=== PATIENT | male | born 1945 | race Caucasian/White ===

== ENCOUNTER 2019-08-28 00:04 | Emergency (ER) | payer MEDICARE ==
[2019-08-28 00:45] LABS: BASO # 0.1 x10^3/uL (0.0-0.2); BASO % 1 % (0-3); EOS # 0.4 x10^3/uL (0.0-0.7); EOS % 5 % (0-3); HEMATOCRIT 45.3 % (39.0-53.0); HEMOGLOBIN 15.3 g/dL (13.0-17.5); LYMPH # 2.6 x10^3/uL (1.0-4.8); LYMPH % 30 % (24-48); MEAN CORPUSCULAR HEMOGLOBIN 31 pg (25-35); MEAN CORPUSCULAR HGB CONC 34 g/dL (31-37); MEAN CORPUSCULAR VOLUME 92 fL (79-100); MONO % 12 % (0-9); NEUT # 4.4 x10^3uL (1.8-7.7); NEUT % 52 % (31-73); PLATELET COUNT 218 x10^3/uL (140-400); RED BLOOD COUNT 4.91 x10^6/uL (4.30-5.70); RED CELL DISTRIBUTION WIDTH 13.1 % (11.5-14.5); WHITE BLOOD COUNT 8.6 x10^3/uL (4.0-11.0)
[2019-08-28 00:56] LABS: CALCIUM 8.8 mg/dL (8.5-10.1); CREATININE 0.9 mg/dL (0.7-1.3); GFR 82.5; POTASSIUM 3.5 mmol/L (3.5-5.1)
[2019-08-28 01:12] VITALS: BP 126/80
--- NOTE | 2019-08-28 01:16 | PHYS DOC ---
Past History Past Medical History: Hypertension, [place] Past Surgical History: Tonsillectomy, Other Additional Past Surgical Histo: cardiac stents Alcohol Use: None Drug Use: None Adult General Chief Complaint Chief Complaint: HYPERTENSION HPI HPI Patient is a 74-year-old male presenting with chief complaint of blood pressure reading elevated. Apparently he did his blood pressure at home and was 190 systolic no chest pain no headache no shortness of breath he just felt a little lightheaded but really did not feel that bad he just wanted to check his pressure and it came back elevated and there was another reading of 170 so he came to the emergency room for evaluation Review of Systems Review of Systems Constitutional: Denies fever or chills [] Eyes: Denies change in visual acuity, redness, or eye pain [] HENT: Denies nasal congestion or sore throat [] Musculoskeletal: Denies back pain or joint pain [] Integument: Denies rash or skin lesions [] Neurologic: Denies headache, focal weakness or sensory changes [] Endocrine: Denies polyuria or polydipsia [] All other systems were reviewed and found to be within normal limits, except as documented in this note. Allergies Allergies Allergies Coded Allergies Type Severity Reaction Last Updated Verified Sulfa (Sulfonamide Antibiotics) Allergy Severe Swelling 08/28/19 Yes Physical Exam Physical Exam Constitutional: Well developed, well nourished, no acute distress, non-toxic appearance. [] HENT: Normocephalic, atraumatic, bilateral external ears normal, oropharynx moist, no oral exudates, nose normal. [] Eyes: PERRLA, EOMI, conjunctiva normal, no discharge. [] Neck: Normal range of motion, no tenderness, supple, no stridor. [] Cardiovascular:Heart rate regular rhythm, no murmur [] Lungs & Thorax: Bilateral breath sounds clear to auscultation [] Abdomen: Bowel sounds normal, soft, no tenderness, no masses, no pulsatile masses. [] Skin: Warm, dry, no erythema, no rash. [] Back: No tenderness, no CVA tenderness. [] Extremities: No tenderness, no cyanosis, no clubbing, ROM intact, no edema. [] Neurologic: Alert and oriented X 3, normal motor function, normal sensory function, no focal deficits noted. [] Psychologic: Affect normal, judgement normal, mood normal. [] Current Patient Data Vital Signs Vital Signs Date Time Temp Pulse Resp B/P (MAP) Pulse Ox O2 Delivery O2 Flow Rate FiO2 08/28/19 00:08 98.3 84 16 98 Room Air Lab Results Laboratory Tests Test 08/28/19 00:20 White Blood Count 8.6 x10^3/uL (4.0-11.0) Red Blood Count 4.91 x10^6/uL (4.30-5.70) Hemoglobin 15.3 g/dL (13.0-17.5) Hematocrit 45.3 % (39.0-53.0) Mean Corpuscular Volume 92 fL (79-100) Mean Corpuscular Hemoglobin 31 pg (25-35) Mean Corpuscular Hemoglobin Concent 34 g/dL (31-37) Red Cell Distribution Width 13.1 % (11.5-14.5) Platelet Count 218 x10^3/uL (140-400) Neutrophils (%) (Auto) 52 % (31-73) Lymphocytes (%) (Auto) 30 % (24-48) Monocytes (%) (Auto) 12 % (0-9) H Eosinophils (%) (Auto) 5 % (0-3) H Basophils (%) (Auto) 1 % (0-3) Neutrophils # (Auto) 4.4 x10^3uL (1.8-7.7) Lymphocytes # (Auto) 2.6 x10^3/uL (1.0-4.8) Monocytes # (Auto) 1.0 x10^3/uL (0.0-1.1) Eosinophils # (Auto) 0.4 x10^3/uL (0.0-0.7) Basophils # (Auto) 0.1 x10^3/uL (0.0-0.2) Sodium Level 139 mmol/L (136-145) Potassium Level 3.5 mmol/L (3.5-5.1) Chloride Level 101 mmol/L (98-107) Carbon Dioxide Level 27 mmol/L (21-32) Anion Gap 11 (6-14) Blood Urea Nitrogen 21 mg/dL (8-26) Creatinine 0.9 mg/dL (0.7-1.3) Estimated GFR (Cockcroft-Gault) 82.5 Glucose Level 108 mg/dL (70-99) H Calcium Level 8.8 mg/dL (8.5-10.1) Troponin I Quantitative < 0.017 ng/mL (0-0.055) EKG EKG []EKG shows a sinus rhythm QRS is 1:30 there is a nonspecific intraventricular block in light of that no definite ischemia or STEMI was identified Radiology/Procedures Radiology/Procedures [] Course & Med Decision Making Course & Med Decision Making Pertinent Labs and Imaging studies reviewed. (See chart for details) []Blood pressures in the emergency room are in the 139-143 range systolic he is asymptomatic he is very well-appearing overall this is a 74-year-old male with prior history of [place] with a stent presenting after an episode of elevated blood pressure at home. Currently symptoms resolved patient feels well blood pressure is essentially normal sort of high normal Regarding close follow-up with primary care doctor within 1 week come back right away for any shortness of breath chest pain or recurrent symptoms Dragon Disclaimer Dragon Disclaimer This electronic medical record was generated, in whole or in part, using a voice recognition dictation system. Departure Departure: Impression: Primary Impression: Elevated blood pressure reading Disposition: 01 HOME, SELF-CARE Condition: STABLE Patient Instructions: Hypertension Additional Instructions: your blood pressure was borderline in the emergency room, please see primary doctor for a re-evaluation in one week. ROBERT KERR MD Aug 28, 2019 01:16
--- NOTE | 2019-08-28 04:01 | EKG ---
[address] [address] Test Date: 2019-08-28 Test Time: 00:17:49 Pat Name: FAZAL SALAZAR Department: Room: Gender: M [employer]: : 1945 Requested By: ROBERT KERR Order Number: [id number] Reading MD: Measurements Intervals Stevens Rate: 83 P: 46 ME: 158 QRS: -52 QRSD: 130 T: 39 QT: 390 QTc: 459 Interpretive Statements SINUS RHYTHM ABNORMAL LEFT AXIS DEVIATION NON SPECIFIC INTRAVENTRICULAR BLOCK ABNORMAL ECG RI6.01 No previous ECG available for comparison
== END 2019-08-28 01:28 | disposition home or self-care (01) ==
LOC: ER 00:04
DX: I10 Essential (primary) hypertension (principal); I25.2 Old myocardial infarction; Z88.2 Allergy status to sulfonamides
CPT/HCPCS: 36415; 80048; 84484; 85025; 93005; 99285

== ENCOUNTER 2020-05-10 10:40 | Emergency (ER) | payer MEDICARE ==
[~2020-05-10] VITALS: Ht 177.8 cm; Wt 82.4 kg
--- NOTE | 2020-05-10 10:51 | PHYS DOC ---
Past History Past Medical History: Hypertension, [place] Past Surgical History: Tonsillectomy, Other Additional Past Surgical Histo: cardiac stents Alcohol Use: None Drug Use: None General Adult EDM: Chief Complaint: NEURO SYMPTOMS/DEFICITS HPI: HPI: 74-year-old male presents via EMS with difficulty with speech. The patient's last known well was 830 this morning it is now 1049. He was acting fine while he let the dogs out in the morning as well as while he ate breakfast. He got in the shower and when he got out he was unable to speak clearly. Patient did not appear to have any other symptoms according to his spouse and EMS. The patient is unable to verbally answer questions for me. He appears to hear what I am saying, but is unable to formulate an answer. He does say clear words, they just do not make sense in context. Review of Systems: Review of Systems: Constitutional: Denies fever or chills Eyes: Denies change in visual acuity HENT: Denies nasal congestion or sore throat Respiratory: Denies cough or shortness of breath Cardiovascular: Denies chest pain or edema GI: Denies abdominal pain, nausea, vomiting, bloody stools or diarrhea : Denies dysuria Musculoskeletal: Denies back pain or joint pain Integument: Denies rash Neurologic: Denies headache, focal weakness or sensory changes Endocrine: Denies polyuria or polydipsia Lymphatic: Denies swollen glands Psychiatric: Denies depression or anxiety Heart Score: Risk Factors: Risk Factors: DM, Current or recent (<one month) smoker, HTN, HLP, family history of CAD, obesity. Risk Scores: Score 0 - 3: 2.5% MACE over next 6 weeks - Discharge Home Score 4 - 6: 20.3% MACE over next 6 weeks - Admit for Clinical Observation Score 7 - 10: 72.7% MACE over next 6 weeks - Early Invasive Strategies Allergies: Allergies: Allergies Coded Allergies Type Severity Reaction Last Updated Verified Sulfa (Sulfonamide Antibiotics) Allergy Severe Swelling 08/28/19 Yes Physical Exam: PE: Constitutional: Well developed, well nourished, no acute distress, non-toxic appearance. [] HENT: Normocephalic, atraumatic, bilateral external ears normal, oropharynx moist, no oral exudates, nose normal. [] Eyes: PERRLA, EOMI, conjunctiva normal, no discharge. [] Neck: Normal range of motion, no tenderness, supple, no stridor. [] Cardiovascular:Heart rate regular rhythm, no murmur [] Lungs & Thorax: Bilateral breath sounds clear to auscultation [] Abdomen: Bowel sounds normal, soft, no tenderness, no masses, no pulsatile masses. [] Skin: Warm, dry, no erythema, no rash. [] Back: No tenderness, no CVA tenderness. [] Extremities: No tenderness, no cyanosis, no clubbing, ROM intact, no edema. [] Neurologic: Alert and oriented X 3, normal motor function, normal sensory function, no focal deficits noted. [] Psychologic: Affect normal, judgement normal, mood normal. [] EKG: EKG: Sinus rhythm, rate 78, left axis, PVC, no ST elevations or depressions. [] Radiology/Procedures: Radiology/Procedures: [] Impressions: CT scan of the head without contrast 05/10/2020 Clinical History: Slurred speech. Confusion. Weakness. Code stroke. Technique: Unenhanced, contiguous, 5 mm axial sections were obtained through the head. One or more of the following individualized dose reduction techniques were utilized for this study: 1. Automated exposure control. 2. Adjustment of the mA and/or kV according to patient size. 3. Use of iterative reconstruction technique. Findings: There is generalized parenchymal atrophy. Areas of decreased attenuation are seen within the periventricular and subcortical white matter of both cerebral hemispheres consistent with areas of small vessel ischemic disease. No acute parenchymal abnormality is seen. No extra-axial fluid collection is noted. No skull fracture is seen. Impression: No acute intracranial abnormality is seen. This result was called to Dr. Payne at 1048 hours. FOR INTERNAL CODING PURPOSES RESULT CODE: (C) Electronically signed by: Singh Carr MD (05/10/2020 10:51 AM) [id number] DICTATED AND SIGNED BY: SINGH CARR MD DATE: 05/10/20 1051 CC: XIN PAYNE DO; GETACHEW BRISENO MD ~ Single AP view of the chest. Comparison: None. Indication: Altered mental status Findings: The heart is enlarged. There is no pneumothorax or effusion. Pulmonary vascular congestion Impression: 1. Cardiomegaly of mild pulmonary vascular congestion. Electronically signed by: Jonathan Fisher MD (05/10/2020 12:08 PM) [id number] DICTATED AND SIGNED BY: JONATHAN FISHER MD DATE: 05/10/20 1208 CC: XIN PAYNE DO; GETACHEW BRISENO MD ~ CTA of the head and neck with contrast 05/10/2020 Clinical history: Confusion. Weakness. Slurred speech. Technique: After the intravenous administration of 100 cc of Omnipaque 350, contiguous, 0.625 mm axial sections were obtained through the upper chest, neck and head. Multiplanar 3-D MIP and volume rendered 3-D reconstructed images were obtained. One or more of the following individualized dose reduction techniques were utilized for this study: 1. Automated exposure control. 2. Adjustment of the mA and/or kV according to patient size. 3. Use of iterative reconstruction technique. Findings: Comparison is made to patient's CT scan of the head performed earlier today. Scattered atherosclerotic plaque formation seen involving the thoracic aortic arch and its branches. The origins of the brachiocephalic, left common carotid and left subclavian arteries from the thoracic aortic arch are patent. The origin of the right common carotid artery and both vertebral arteries are patent. The common carotid arteries are mildly tortuous bilaterally but patent. Very mild atheromatous plaque formation seen involving both carotid bifurcations. No hemodynamically significant stenosis is seen. The internal carotid arteries within the neck are tortuous but patent. The left vertebral artery is dominant. Both vertebral arteries demonstrate normal antegrade flow. No area stenosis or occlusion is seen. Intracranially, scattered atherosclerotic plaque formation is seen involving the cavernous portions of both internal carotid arteries. No hemodynamically significant stenosis or area of occlusion is seen. The basilar artery is patent. The left middle cerebral artery is occluded at its distal left M1 segment 1.2 cm from its origin. Opacification of the left MCA branches distal to the trifurcation with contrast is noted. The right middle cerebral artery and its branches, anterior cerebral arteries and their branches and posterior cerebral arteries and their branches are within normal limits. No intracranial aneurysm is noted. The major dural venous sinuses are patent. No area of abnormal contrast enhancement is seen. No acute soft tissue abnormality is seen involving the neck. Degenerative changes are seen involving the uncovertebral and facet joints throughout the cervical disc spaces. Impression: 1. Very mild atheromatous plaque formation is seen involving both carotid bifurcations. No hemodynamically significant stenosis is seen. 2. Occlusion of the distal M1 segment of the left middle cerebral artery. This finding was discussed with Dr. Payne. Stenosis calculation for CTA are based on measurement of the distal internal carotid artery diameter in accordance with the NASCET methodology. FOR INTERNAL CODING PURPOSES RESULT CODE: (C) Electronically signed by: Singh Carr MD (05/10/2020 1:58 PM) [id number] DICTATED AND SIGNED BY: SINGH CARR MD DATE: 05/10/20 1358 CC: XIN PAYNE DO; GETACHEW BRISENO MD ~ Course & Med Decision Making: Course & Med Decision Making Pertinent Labs and Imaging studies reviewed. (See chart for details) Patient's labs are unremarkable. After the patient arrived, his NIH stroke scale was a 6. CT without contrast was negative for hemorrhage. He was coming up on the 3-hour nico. I spoke with the on-call neurologist at and she did recommend TPA. I spoke with the patient about TPA. He appeared to understand. When asked yes/no questions he was able to answer. I asked him if he wanted me to discuss with his family and I showed him a phone number for his and he said yes. I spoke with both the and the daughter about TPA and potential side effects. They confirm for me that the patient has not recently had surgery. He has never had a hemorrhagic stroke. He does not take any medications daily. Patient has no absolute contraindications and appears to be a good candidate. We gave him TPA. After TPA administration, the patient has not had significant improvement. His chest x-ray shows cardiomegaly and mild pulmonary vascular congestion. CTA of the head and neck is pending. CTA of the head and neck shows occlusion of distal M1 segment of the left middle cerebral artery. I spoke a second time with and Dr. Santacruz has accepted the patient for transfer as a code stroke. He will go by ambulance. 57 minutes of critical care time was spent on this patient exclusive of other billable procedures. [] Dragon Disclaimer: Dragon Disclaimer: This electronic medical record was generated, in whole or in part, using a voice recognition dictation system. NIH Stroke Scale: NIH Stroke Scale Response (Comments) Value Level of Consciousness: 0 Alert/Responsive 0 LOC Questions: 2 Answers neither correct 2 LOC Commands: 1 Performs one task 1 Best Gaze: 0 Normal 0 Visual: 0 No visual loss 0 Facial Palsy: 1 Minor paralysis 1 Motor - Left Arm 0 No drift 0 Motor - Right Arm 0 No drift 0 Motor - Left Leg 0 No drift 0 Motor: Right Leg 0 No drift 0 Limb Ataxia: 0 Absent 0 Sensory: 0 No loss 0 Best Language: 2 Severe aphasia 2 Dysathria: 0 Normal 0 Extinction and Inattention: 0 Normal 0 Total 6 Departure Departure: Impression: Primary Impression: Stroke due to occlusion of middle cerebral artery Qualified Codes: I63.512 - Cerebral infarction due to unspecified occlusion or stenosis of left middle cerebral artery Disposition: XFER SHT-TRM HOSP Condition: STABLE Referrals: GETACHEW BRISENO MD (PCP) Justification of Admission: Justification of Admission: Justification of Admission Dx: Yes Stroke - Ischemic: Stroke-Ischemic XIN PAYNE DO May 10, 2020 10:51
--- NOTE | 2020-05-10 10:54 | RAD ---
CT scan of the head without contrast 05/10/2020 Clinical History: Slurred speech. Confusion. Weakness. Code stroke. Technique: Unenhanced, contiguous, 5 mm axial sections were obtained through the head. One or more of the following individualized dose reduction techniques were utilized for this study: 1. Automated exposure control. 2. Adjustment of the mA and/or kV according to patient size. 3. Use of iterative reconstruction technique. Findings: There is generalized parenchymal atrophy. Areas of decreased attenuation are seen within the periventricular and subcortical white matter of both cerebral hemispheres consistent with areas of small vessel ischemic disease. No acute parenchymal abnormality is seen. No extra-axial fluid collection is noted. No skull fracture is seen. Impression: No acute intracranial abnormality is seen. This result was called to Dr. Browne at 1048 hours. FOR INTERNAL CODING PURPOSES RESULT CODE: (C) Electronically signed by: Singh Carr MD (05/10/2020 10:51 AM) [id number]
[2020-05-10] MEDS ORDERED: ALTEPLASE 100 MG VIAL IV ONE (11:00)
[2020-05-10] MEDS ORDERED: ALTEPLASE 100 MG IV ONE ×2 (11:09→11:45)
[2020-05-10 11:14] LABS: HEMATOCRIT 43.7 % (39.0-53.0); HEMOGLOBIN 14.9 g/dL (13.0-17.5); RED BLOOD COUNT 4.76 x10^6/uL (4.30-5.70); RED CELL DISTRIBUTION WIDTH 13.4 % (11.5-14.5); WHITE BLOOD COUNT 8.4 x10^3/uL (4.0-11.0)
--- NOTE | 2020-05-10 11:20 | EKG ---
[address] [address] Test Date: 2020-05-10 Test Time: 10:54:18 Pat Name: FAZAL SALAZAR Department: Room: Gender: M [employer] Act[employer]: : 1945 Requested By: XIN PAYNE Order Number: [id number] Reading MD: Bandar Cisse MD Measurements Intervals Mccune Rate: 78 P: 43 WV: 166 QRS: -47 QRSD: 122 T: -2 QT: 388 QTc: 446 Interpretive Statements SINUS RHYTHM VENTRICULAR PREMATURE COMPLEX(ES) ABNORMAL LEFT AXIS DEVIATION INCOMPLETE LEFT BUNDLE BRANCH BLOCK QRS(T) CONTOUR ABNORMALITY CONSIDER ANTEROSEPTAL MYOCARDIAL DAMAGE ABNORMAL ECG Electronically Signed On 05-10-2020 12:52:23 CDT by Bandar Cisse MD
[2020-05-10 11:24] LABS: CALCIUM 8.9 mg/dL (8.5-10.1); POTASSIUM 3.7 mmol/L (3.5-5.1)
[2020-05-10 11:29] LABS: ALBUMIN 3.6 g/dL (3.4-5.0); TOTAL BILIRUBIN 0.3 mg/dL (0.2-1.0); TOTAL PROTEIN 7.1 g/dL (6.4-8.2)
[2020-05-10] MEDS ORDERED: ALTEPLASE 2 MG VIAL INT CAT ONE (11:30)
[2020-05-10] MEDS ORDERED: ALTEPLASE IV SCH (11:45)
[2020-05-10] MEDS ORDERED: IOHEXOL 350 MG/ML 100 ML VIAL. IV ONE (11:45)
[2020-05-10] MEDS ORDERED: ALTEPLASE IV ONE (11:45)
[2020-05-10] MEDS ORDERED: ALTEPLASE 7 MG IV ONE (11:45)
[2020-05-10] MEDS ORDERED: IV NORMAL SALINE 50ML 50 ML IV ONE (11:45)
[2020-05-10] MEDS ORDERED: IOHEXOL 350 MG/ML 100 ML VIAL. ONE (11:52)
[2020-05-10] MEDS ORDERED: CONTRAST GIVEN. MC PRN (12:00)
--- NOTE | 2020-05-10 12:11 | RAD ---
Single AP view of the chest. Comparison: None. Indication: Altered mental status Findings: The heart is enlarged. There is no pneumothorax or effusion. Pulmonary vascular congestion Impression: 1. Cardiomegaly of mild pulmonary vascular congestion. Electronically signed by: Jonathan Fisher MD (05/10/2020 12:08 PM) [id number]
[2020-05-10 12:47] VITALS: BP 139/63
--- NOTE | 2020-05-10 14:01 | RAD ---
CTA of the head and neck with contrast 05/10/2020 Clinical history: Confusion. Weakness. Slurred speech. Technique: After the intravenous administration of 100 cc of Omnipaque 350, contiguous, 0.625 mm axial sections were obtained through the upper chest, neck and head. Multiplanar 3-D MIP and volume rendered 3-D reconstructed images were obtained. One or more of the following individualized dose reduction techniques were utilized for this study: 1. Automated exposure control. 2. Adjustment of the mA and/or kV according to patient size. 3. Use of iterative reconstruction technique. Findings: Comparison is made to patient's CT scan of the head performed earlier today. Scattered atherosclerotic plaque formation seen involving the thoracic aortic arch and its branches. The origins of the brachiocephalic, left common carotid and left subclavian arteries from the thoracic aortic arch are patent. The origin of the right common carotid artery and both vertebral arteries are patent. The common carotid arteries are mildly tortuous bilaterally but patent. Very mild atheromatous plaque formation seen involving both carotid bifurcations. No hemodynamically significant stenosis is seen. The internal carotid arteries within the neck are tortuous but patent. The left vertebral artery is dominant. Both vertebral arteries demonstrate normal antegrade flow. No area stenosis or occlusion is seen. Intracranially, scattered atherosclerotic plaque formation is seen involving the cavernous portions of both internal carotid arteries. No hemodynamically significant stenosis or area of occlusion is seen. The basilar artery is patent. The left middle cerebral artery is occluded at its distal left M1 segment 1.2 cm from its origin. Opacification of the left MCA branches distal to the trifurcation with contrast is noted. The right middle cerebral artery and its branches, anterior cerebral arteries and their branches and posterior cerebral arteries and their branches are within normal limits. No intracranial aneurysm is noted. The major dural venous sinuses are patent. No area of abnormal contrast enhancement is seen. No acute soft tissue abnormality is seen involving the neck. Degenerative changes are seen involving the uncovertebral and facet joints throughout the cervical disc spaces. Impression: 1. Very mild atheromatous plaque formation is seen involving both carotid bifurcations. No hemodynamically significant stenosis is seen. 2. Occlusion of the distal M1 segment of the left middle cerebral artery. This finding was discussed with Dr. Browne. Stenosis calculation for CTA are based on measurement of the distal internal carotid artery diameter in accordance with the NASCET methodology. FOR INTERNAL CODING PURPOSES RESULT CODE: (C) Electronically signed by: Singh Carr MD (05/10/2020 1:58 PM) [id number]
[2020-05-10 14:09] LABS: BACTERIA,URINE 0 /HPF (0-FEW); BILIRUBIN,URINE NEG (NEG); CLARITY,URINE CLEAR; COLOR,URINE YELLOW; GLUCOSE,URINE NEG (NEG); NITRITE,URINE NEG (NEG); RBC,URINE 0 /HPF (0-2); UROBILINOGEN,URINE 0.2 mg/dL (0.2 mg/dL); WBC,URINE 0 /HPF (0-4)
== END 2020-05-10 14:34 | disposition short-term general hospital (02) ==
LOC: ER 10:40
DX: I63.512 Cerebral infarction due to unspecified occlusion or stenosis of left middle cerebral artery (principal); R47.01 Aphasia; I10 Essential (primary) hypertension; I25.2 Old myocardial infarction; Z88.2 Allergy status to sulfonamides
CPT/HCPCS: 36415; 37195; 70450; 70496; 70498; 71045; 80053; 81001; 85027; 85610; 85730; 93005; 99291; J2997; Q9967

== ENCOUNTER 2021-03-26 03:47 | Emergency (ER) | payer MEDICARE ==
[~2021-03-26] VITALS: Ht 177.8 cm; Wt 82.4 kg
--- NOTE | 2021-03-26 03:52 | PHYS DOC ---
Past History Past Medical History: CAD, CVA, Hypertension, MA Past Surgical History: Other Additional Past Surgical Histo: UNKNOWN SURGICAL HX Alcohol Use: None Drug Use: None General Adult HPI: HPI: ".. I woke up short of breath... and my back.. and abdomen hurts.. " Patient is a 75 year old male who presents with above hx and complaints dyspnea and left flank and abdomen pain. Patient is hypoxic on room air on presentation. No history of previous kidney stones. No history of severe ill contacts. Has had recent Covid testing last week which were negative. Patient did not get COVID vaccination. Patient does have significant medical history of hypertension, MA, CVA, cardiac stents, and COPD/bronchitis. Patient normally follows with Dr. Anais Briseno for care. Patient not oxygen dependent previously. Review of Systems: Review of Systems: Constitutional: History of fever or chills Eyes: Denies change in visual acuity HENT: Denies nasal congestion or sore throat Respiratory: Denies cough or shortness of breath Cardiovascular: Complains of chest pain. GI: Complains of left flank abdominal pain, nausea,. Denies vomiting, bloody stools or diarrhea : Denies dysuria Musculoskeletal: Complains of left flank back pain Integument: Denies rash Neurologic: Denies headache, focal weakness or sensory changes Endocrine: Denies polyuria or polydipsia Lymphatic: Denies swollen glands Psychiatric: Denies depression or anxiety Family History: Family History: Noncontributory to presentation Current Medications: Current Meds: See nursing for home meds Allergies: Allergies: Allergies Coded Allergies Type Severity Reaction Last Updated Verified Sulfa (Sulfonamide Antibiotics) Allergy Severe Swelling 08/28/19 Yes Physical Exam: PE: Constitutional: Moderate acute distress, non-toxic appearance. [] HENT: Normocephalic, atraumatic, bilateral external ears normal, oropharynx moist, no oral exudates, nose normal. [] Eyes: PERRLA, EOMI, conjunctiva normal, no discharge. [] Neck: Normal range of motion, no tenderness, supple, no stridor. [] Cardiovascular: Tachycardia heart rate regular rhythm, no murmur [] Lungs & Thorax: Bilateral breath sounds equal apex with scattered wheezes. Decreased left basilar breath sounds. Does have a left basilar rub. And rh onchi or crackles on auscultation [] Abdomen: Bowel sounds decreased, soft, no tenderness, no masses, no pulsatile masses. Left flank tenderness Skin: Warm, diaphoretic, no erythema, no rash. [] Back: No tenderness, left CVA tenderness. [] Extremities: No tenderness, no cyanosis, no clubbing, ROM intact, trace ankle edema. No cording appreciated Neurologic: Alert and oriented X 3, moves all extremities on request, does have distal sensory, no new focal deficits noted. Very hard of hearing. 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 [] EKG: EKG: My interpretation EKG shows a sinus tachycardia 113 bpm. Left axis deviation. Fascicular block. Anterior septal strain. Baseline artifact due to patient movement. This is abnormal EKG. Radiology/Procedures: Radiology/Procedures: [][address] [address] IMAGING REPORT Signed PATIENT: FAZAL SALAZAR ACCOUNT: [id number] : 1945 LOCATION: ER AGE: 75 SEX: M EXAM STATUS: REG ER ORD. PHYSICIAN: LOIS LICEA MD REASON: abd. Lt flank pain PROCEDURE: ACUTE ABDOMEN SERIES Study: XR ABDOMEN COMP ACUTE Indication: Abdominal/left flank pain. Comparison: None. Findings: Moderate-sized pleural effusion on the left with overlying volume loss. Less pronounced atelectasis at the right lower lung. Loop recorder. No pneumothorax. The cardiomediastinal silhouette is at the upper limits of normal for size. Nonobstructive bowel gas pattern. Mild volume colonic stool burden. Radiodensities layering within the cecum likely ingested material. No radiographic evidence for pneumoperitoneum. No suspicious calcifications. Impression: 1. Moderate-sized pleural effusion on the left with overlying volume loss. 2. No acute radiographic abnormality of the abdomen or pelvis. Mild constipation. Electronically signed by: ANDREY JON MD (03/26/2021 5:22 AM) [facility] DICTATED AND SIGNED BY: ANDREY JON MD DATE: 03/26/21 0520 CC: LOIS LICEA MD; ANAIS BRISENO MD ~MTH0 [address] [address] IMAGING REPORT Signed PATIENT: FAZAL SALAZAR ACCOUNT: [id number] : 1945 LOCATION: ER AGE: 75 SEX: M EXAM STATUS: REG ER ORD. PHYSICIAN: LOIS LICEA MD REASON: Severe Lt chest and flank pain PROCEDURE: CT CHEST ABDOMEN PELVIS WO Study: CT chest, abdomen and pelvis without contrast INDICATION: Severe left chest and flank pain. COMPARISON: None. TECHNIQUE: Helical CT imaging performed of the chest, abdomen and pelvis performed without the use of intravenous contrast. Coronal and sagittal reformats were obtained. One or more of the following individualized dose reduction techniques were utilized for this examination: 1. Automated exposure control 2. Adjustment of the mA and/or kV according to patient size 3. Use of iterative reconstruction technique. FINDINGS: Inherently limited study without contrast. CT Chest: Scattered calcific atherosclerosis to include extensive coronary artery involvement. Nonaneurysmal thoracic aorta. Dense calcification in the apical region of the left lateral ventricle potentially associated with the endocardium. A few mildly enlarged mediastinal and hilar lymph nodes. A lymph node at the aortopulmonic window on image 36 series 2 measures 1.3 cm short axis. There appears to be a 1.2 cm left hilar lymph node on image 41 series 2. No pericardial effusion. Moderate-sized pleural effusion on the left. Left more so than right atelectasis at the lower lungs. Opacities within the lingula and left lower lobe more so than right lower lobe could potentially also be infectious in etiology. A few pulmonary nodules measuring 4 mm or less such as posteriorly at the right upper lobe abutting the fissure on image 34 series 2. Loop recorder device. No axillary adenopathy. No displaced rib fracture on the left. CT Abdomen/Pelvis: Prominent right hepatic lobe cystic focus measuring simple density. Unremarkable gallbladder, biliary tree, pancreas, adrenal glands and spleen. No hydronephrosis or intrarenal stone. Unremarkable bladder. Mild enlargement of the prostate at 4.5 cm transverse. Colonic diverticulosis without diverticulitis. Mild constipation. Ingested tablets within the proximal colon. No inflammatory changes at the expected location of the appendix. Nondilated small bowel. Unremarkable stomach. Aortobiiliac calcific atherosclerosis. Nonaneurysmal aorta. No lymphadenopathy. No free fluid or pneumoperitoneum. No acute or aggressive osseous process. Scattered degenerative changes with discogenic arthrosis most pronounced at L1-L2 where there is mild retrolisthesi s. L4 vertebral body hemangioma. IMPRESSION: CT Chest: 1. Moderate-sized pleural effusion on the left with associated atelectasis. Additionally there are consolidative opacities within the lingula and left lower lobe and less pronounced branching opacities within the right lower lobe. A superimposed pneumonia is possible. Short-term follow-up is needed to confirm resolution. 2. Dense mineralization near the left ventricular apex which may be endocardial in location. The appearance is unusual but the differential is broad. Correlate for any known history of cardiomyopathy. Extensive calcific coronary artery disease. 3. A few mildly enlarged mediastinal and hilar lymph nodes favored most likely reactive. Recommend attention on follow-up performed to confirm resolution of the left lung findings. CT Abdomen/Pelvis: 1. No acute abnormality seen below the diaphragm. In the setting of reported left flank pain there is no stone or collecting system dilatation. 2. Chronic observations detailed in the body of the report. Electronically signed by: ANDREY JON MD (03/26/2021 5:39 AM) [facility] DICTATED AND SIGNED BY: ANDREY JON MD DATE: 03/26/21 0527 CC: LOIS LICEA MD; ANAIS BRISENO MD ~MTH0 0 Heart Score: C/O Chest Pain: Yes HEART Score for Chest Pain: HEART Score for Chest Pain Response (Comments) Value History Moderately Suspicious 1 ECG Nonspecific Repolarizatio 1 Age > 65 2 Risk Factors 1 or 2 Risk Factors 1 Troponin < Normal Limit 0 Total 5 Risk Factors: Risk Factors: DM, Current or recent (<one month) smoker, HTN, HLP, family history of CAD, obesity. Risk Scores: Score 0 - 3: 2.5% MACE over next 6 weeks - Discharge Home Score 4 - 6: 20.3% MACE over next 6 weeks - Admit for Clinical Observation Score 7 - 10: 72.7% MACE over next 6 weeks - Early Invasive Strategies Course & Med Decision Making: Course & Med Decision Making Pertinent Labs and Imaging studies reviewed. (See chart for details) Discussed presentation, testing and treatment plan with . And transferred to [facility] for pulmonary consult or interventional radiology evaluate left pleural effusion. Treat as if pneumonia with loculated pleural pleural effusion. Impression: 1. Chest pain- 2. Large left pleural effusion 3. Pneumonia 4. Leukocytosis 17.3 5. Anemia 12.8 Hgb 6. Elevated D-dimer 2.34 7. Diabetes 174 8. History of CVA and 03/13/2021-sequela speech mentation deficit [] Dragon Disclaimer: Dragon Disclaimer: This electronic medical record was generated, in whole or in part, using a voice recognition dictation system. Departure Departure: Referrals: ANAIS BRISENO MD (PCP) Michael Disclaimer This chart was dictated in whole or in part using Voice Recognition software in a busy, high-work load, and often noisy Emergency Department environment. It may contain unintended and wholly unrecognized errors or omissions. LOIS LICEA MD Mar 26, 2021 03:52
[2021-03-26] MEDS ORDERED: KETOROLAC 15 MG/ML VIAL. IVP ONE (04:00)
[2021-03-26] MEDS ORDERED: KETOROLAC 15 MG/ML VIAL. ONE (04:04)
[2021-03-26] MEDS ORDERED: ASPIRIN CHEWABLE 81 MG TABLET. PO ONE (04:15)
[2021-03-26] MEDS ORDERED: IV RINGERS SOLUTION,LACTATED 1,000 ML IV SCH (04:15)
[2021-03-26] MEDS ORDERED: ALBUTEROL SULFATE 8GM INHALER. INH ONE (04:15)
[2021-03-26] MEDS ORDERED: MORPHINE SULFATE 10 MG/ML SYRINGE. SQ ONE (04:15)
[2021-03-26 04:23] LABS: BASO # 0.1 x10^3/uL (0.0-0.2); BASO % 1 % (0-3); EOS # 0.2 x10^3/uL (0.0-0.7); EOS % 1 % (0-3); HEMATOCRIT 37.6 % (39.0-53.0); HEMOGLOBIN 12.8 g/dL (13.0-17.5); LYMPH # 1.4 x10^3/uL (1.0-4.8); LYMPH % 8 % (24-48); MEAN CORPUSCULAR HEMOGLOBIN 31 pg (25-35); MEAN CORPUSCULAR HGB CONC 34 g/dL (31-37); MEAN CORPUSCULAR VOLUME 90 fL (79-100); MONO # 0.9 x10^3/uL (0.0-1.1); MONO % 5 % (0-9); NEUT # 14.6 x10^3uL (1.8-7.7); NEUT % 84 % (31-73); PLATELET COUNT 432 x10^3/uL (140-400); RED BLOOD COUNT 4.17 x10^6/uL (4.30-5.70); RED CELL DISTRIBUTION WIDTH 13.3 % (11.5-14.5); WHITE BLOOD COUNT 17.3 x10^3/uL (4.0-11.0)
[2021-03-26] MEDS ORDERED: ONDANSETRON PF 4 MG/2 ML VIAL. IVP ONE (04:30)
--- NOTE | 2021-03-26 04:31 | EKG ---
[address] [address] Test Date: 2021-03-26 Test Time: 04:13:02 Pat Name: FAZAL SALAZAR Department: Room: Gender: M Patient Advocate: : 1945 Requested By: LOIS LICEA Order Number: [id number] Reading MD: Measurements Intervals [place] Rate: 113 P: 39 AK: 156 QRS: -44 QRSD: 106 T: 28 QT: 312 QTc: 433 Interpretive Statements SINUS TACHYCARDIA ABNORMAL LEFT AXIS DEVIATION LEFT ANTERIOR FASCICULAR BLOCK QRS(T) CONTOUR ABNORMALITY CONSIDER ANTEROSEPTAL MYOCARDIAL DAMAGE ABNORMAL ECG RI6.02 No previous ECG available for comparison
[2021-03-26 04:33] LABS: CALCIUM 8.1 mg/dL (8.5-10.1); GFR 72.8; POTASSIUM 3.9 mmol/L (3.5-5.1)
[2021-03-26 04:47] LABS: ALBUMIN 3.1 g/dL (3.4-5.0); DIRECT BILIRUBIN 0.2 mg/dL (0.0-0.2); MAGNESIUM 2.1 mg/dL (1.8-2.4); TOTAL BILIRUBIN 0.5 mg/dL (0.2-1.0); TOTAL PROTEIN 6.5 g/dL (6.4-8.2)
[2021-03-26 04:57] LABS: % BANDS 6 % (0-9); % EOS 2 % (0-5); % LYMPHS 4 % (24-48); % MONOS 5 % (0-10); % SEGS 83 % (35-66); PLT ESTIMATE INCREASED (ADEQUATE)
--- NOTE | 2021-03-26 05:24 | RAD ---
Study: XR ABDOMEN COMP ACUTE Indication: Abdominal/left flank pain. Comparison: None. Findings: Moderate-sized pleural effusion on the left with overlying volume loss. Less pronounced atelectasis a t the right lower lung. Loop recorder. No pneumothorax. The cardiomediastinal silhouette is at the upper limits of normal for size. Nonobstructive bowel gas pattern. Mild volume colonic stool burden. Radiodensities layering within th e cecum likely ingested material. No radiographic evidence for pneumoperitoneum. No suspicious calcif ications. Impression: 1. Moderate-sized pleural effusion on the left with overlying volume loss. 2. No acute radiographic abnormality of the abdomen or pelvis. Mild constipation. Electronically signed by: ANDREY JON MD (03/26/2021 5:22 AM) [facility]
--- NOTE | 2021-03-26 05:42 | RAD ---
Study: CT chest, abdomen and pelvis without contrast INDICATION: Severe left chest and flank pain. COMPARISON: None. TECHNIQUE: Helical CT imaging performed of the chest, abdomen and pelvis performed without the use of intravenous contrast. Coronal and sagittal reformats were obtained. One or more of the following individualized dose reduction techniques were utilized for this examinat ion: 1. Automated exposure control 2. Adjustment of the mA and/or kV according to patient size 3. Use of iterative reconstruction technique. FINDINGS: Inherently limited study without contrast. CT Chest: Scattered calcific atherosclerosis to include extensive coronary artery involvement. Nonaneurysmal th oracic aorta. Dense calcification in the apical region of the left lateral ventricle potentially asso ciated with the endocardium. A few mildly enlarged mediastinal and hilar lymph nodes. A lymph node at the aortopulmonic window on image 36 series 2 measures 1.3 cm short axis. There appears to be a 1.2 cm left hilar lymph node on i mage 41 series 2. No pericardial effusion. Moderate-sized pleural effusion on the left. Left more so than right atelectasis at the lower lungs. Opacities within the lingula and left lower lobe more so than right lower lobe could potentially also be infectious in etiology. A few pulmonary nodules measuring 4 mm or less such as posteriorly at the right upper lobe abutting the fissure on image 34 series 2. Loop recorder device. No axillary adenopathy. No displaced rib fracture on the left. CT Abdomen/Pelvis: Prominent right hepatic lobe cystic focus measuring simple density. Unremarkable gallbladder, biliary tree, pancreas, adrenal glands and spleen. No hydronephrosis or intrarenal stone. Unremarkable bladd er. Mild enlargement of the prostate at 4.5 cm transverse. Colonic diverticulosis without diverticulitis. Mild constipation. Ingested tablets within the proxima l colon. No inflammatory changes at the expected location of the appendix. Nondilated small bowel. Un remarkable stomach. Aortobiiliac calcific atherosclerosis. Nonaneurysmal aorta. No lymphadenopathy. No free fluid or pneu moperitoneum. No acute or aggressive osseous process. Scattered degenerative changes with discogenic arthrosis most pronounced at L1-L2 where there is mild retrolisthesis. L4 vertebral body hemangioma. IMPRESSION: CT Chest: 1. Moderate-sized pleural effusion on the left with associated atelectasis. Additionally there are c onsolidative opacities within the lingula and left lower lobe and less pronounced branching opacities within the right lower lobe. A superimposed pneumonia is possible. Short-term follow-up is needed to confirm resolution. 2. Dense mineralization near the left ventricular apex which may be endocardial in location. The sugey earance is unusual but the differential is broad. Correlate for any known history of cardiomyopathy. Extensive calcific coronary artery disease. 3. A few mildly enlarged mediastinal and hilar lymph nodes favored most likely reactive. Recommend a ttention on follow-up performed to confirm resolution of the left lung findings. CT Abdomen/Pelvis: 1. No acute abnormality seen below the diaphragm. In the setting of reported left flank pain there i s no stone or collecting system dilatation. 2. Chronic observations detailed in the body of the report. Electronically signed by: ANDREY JON MD (03/26/2021 5:39 AM) [facility]
[2021-03-26] MEDS ORDERED: VANCOMYCIN 1 GM in IV NORMAL SALINE 250ML 250 ML IV ONE (06:00)
[2021-03-26] MEDS ORDERED: IV NORMAL SALINE 500ML 500 ML ONE (06:11)
[2021-03-26] MEDS ORDERED: VANCOMYCIN 1 GM VIAL. ONE (06:11)
[2021-03-26] MEDS ORDERED: IV NORMAL SALINE 50ML 50 ML ONE (06:11)
[2021-03-26] MEDS ORDERED: cefTRIAXone SODIUM 1 GM VIAL ONE (06:12)
[2021-03-26 06:24] VITALS: BP 109/63
[2021-03-26] MEDS ORDERED: VANCOMYCIN 2 GM in IV NORMAL SALINE 500ML 500 ML IV ONE (06:30)
[2021-03-26] MEDS ORDERED: AZITHROMYCIN 250 MG TABLET. PO ONE (06:30)
== END 2021-03-26 09:50 | disposition short-term general hospital (02) ==
LOC: ER 03:47
DX: J90 Pleural effusion, not elsewhere classified (principal); J18.9 Pneumonia, unspecified organism; R07.9 Chest pain, unspecified; D72.829 Elevated white blood cell count, unspecified; D64.9 Anemia, unspecified; R79.1 Abnormal coagulation profile; E11.9 Type 2 diabetes mellitus without complications; I25.10 Atherosclerotic heart disease of native coronary artery without angina pectoris; I10 Essential (primary) hypertension; I25.2 Old myocardial infarction; Z20.822 Contact with and (suspected) exposure to COVID-19; Z86.73 Personal history of transient ischemic attack (TIA), and cerebral infarction without residual deficits; Z88.2 Allergy status to sulfonamides
CPT/HCPCS: 36415; 71250; 74022; 74176; 80048; 80076; 82150; 82550; 83605; 83690; 83735; 83880; 84443; 84484; 85007; 85025; 85379; 85610; 85730; 87040; 87426; 93005; 94640; 96361; 96365; 96366; 96368; 96372; 96375; 99285; C9803; J0696; J1885; J2270; J2405; J3370; J7040; J7120; U0003; 94664